=== PATIENT | female | born 1965 | race Caucasian/White ===

== ENCOUNTER 2024-08-26 07:03 | Day surgery (SDC) | payer MEDICARE, OTHER ==
[~2024-08-26 07:03] MED LIST: CELE200; DULO30; ESOM20; GLIM2; HYDACE5 PO; INSULANI; LEVSOD50; METF500; OMEGA-3; OMEP20ER; OXCA300; OXYACE5T PO; PENVK500 PO; PREG150; PROM25 PO; PSEU30 PO; SERT50; TRAZ100; ZOLP10; [UNRECOGNIZED DRUG - REMARK]; [UNRECOGNIZED DRUG - REMARK]
[2024-08-26] MEDS ORDERED: Lidocaine HCl 4% Cream 5 GM ONE (10:44)
== END 2024-08-26 23:46 | disposition home or self-care (01) ==
LOC: WOUND 07:03
DX: T81.328D Disruption or dehiscence of closure of other specified internal operation (surgical) wound, subsequent encounter (principal); E78.5 Hyperlipidemia, unspecified; K21.9 Gastro-esophageal reflux disease without esophagitis; E03.9 Hypothyroidism, unspecified; E11.40 Type 2 diabetes mellitus with diabetic neuropathy, unspecified; J44.9 Chronic obstructive pulmonary disease, unspecified; E11.622 Type 2 diabetes mellitus with other skin ulcer; S51.002D Unspecified open wound of left elbow, subsequent encounter; Z88.8 Allergy status to other drugs, medicaments and biological substances; Z88.5 Allergy status to narcotic agent; Y83.8 Other surgical procedures as the cause of abnormal reaction of the patient, or of later complication, without mention of misadventure at the time of the procedure
CPT/HCPCS: A9270; G0463

== ENCOUNTER 2024-09-09 08:32 | Day surgery (SDC) | payer MEDICARE, OTHER ==
[2024-09-09] MEDS ORDERED: Lidocaine HCl 4% Cream 5 GM ONE (14:42)
== END 2024-09-09 23:00 | disposition home or self-care (01) ==
LOC: WOUND 08:32
DX: T81.31XA Disruption of external operation (surgical) wound, not elsewhere classified, initial encounter (principal); E11.9 Type 2 diabetes mellitus without complications; I10 Essential (primary) hypertension
CPT/HCPCS: A9270

== ENCOUNTER 2024-09-16 04:42 | Day surgery (SDC) | payer MEDICARE, OTHER | END 2024-09-16 23:00 | disposition home or self-care (01) | LOC: WOUND 04:42 | DX: T81.328D Disruption or dehiscence of closure of other specified internal operation (surgical) wound, subsequent encounter (principal); I10 Essential (primary) hypertension; E11.622 Type 2 diabetes mellitus with other skin ulcer; S51.002D Unspecified open wound of left elbow, subsequent encounter; Y83.8 Other surgical procedures as the cause of abnormal reaction of the patient, or of later complication, without mention of misadventure at the time of the procedure; E11.65 Type 2 diabetes mellitus with hyperglycemia; E03.9 Hypothyroidism, unspecified | CPT/HCPCS: 36415; 80053; 80061; 83036; 84443; 85025; G0463 ==

== ENCOUNTER 2024-09-23 04:08 | Day surgery (SDC) | payer MEDICARE, OTHER ==
[2024-09-23] MEDS ORDERED: Lidocaine HCl 4% Cream 5 GM ONE (11:21)
== END 2024-09-23 23:00 | disposition home or self-care (01) ==
LOC: WOUND 04:08
DX: T81.328A Disruption or dehiscence of closure of other specified internal operation (surgical) wound, initial encounter (principal); E11.622 Type 2 diabetes mellitus with other skin ulcer; S51.002D Unspecified open wound of left elbow, subsequent encounter; X58.XXXD Exposure to other specified factors, subsequent encounter; Y83.8 Other surgical procedures as the cause of abnormal reaction of the patient, or of later complication, without mention of misadventure at the time of the procedure
CPT/HCPCS: A9270

== ENCOUNTER 2024-10-01 | Day surgery (SDC) | payer MEDICARE, OTHER ==
[~2024-10-01] MED LIST changes: +Lidocaine HCl 4% Cream 5 GM ONE
== END 2024-10-01 23:00 | disposition home or self-care (01) ==
LOC: WOUND
DX: T81.31XA Disruption of external operation (surgical) wound, not elsewhere classified, initial encounter (principal); I10 Essential (primary) hypertension; E11.622 Type 2 diabetes mellitus with other skin ulcer; S51.002D Unspecified open wound of left elbow, subsequent encounter; T81.328D Disruption or dehiscence of closure of other specified internal operation (surgical) wound, subsequent encounter; X58.XXXD Exposure to other specified factors, subsequent encounter; Y83.8 Other surgical procedures as the cause of abnormal reaction of the patient, or of later complication, without mention of misadventure at the time of the procedure
CPT/HCPCS: A9270

== ENCOUNTER 2024-10-07 06:32 | Day surgery (SDC) | payer MEDICARE, OTHER ==
[~2024-10-07 06:32] MED LIST changes: -Lidocaine HCl 4% Cream 5 GM ONE
[2024-10-07] MEDS ORDERED: Lidocaine HCl 4% Cream 5 GM ONE (13:32)
== END 2024-10-07 23:00 | disposition home or self-care (01) ==
LOC: WOUND 06:32
DX: T81.31XA Disruption of external operation (surgical) wound, not elsewhere classified, initial encounter (principal); E11.9 Type 2 diabetes mellitus without complications; I10 Essential (primary) hypertension; E11.622 Type 2 diabetes mellitus with other skin ulcer; S51.002D Unspecified open wound of left elbow, subsequent encounter; Y83.8 Other surgical procedures as the cause of abnormal reaction of the patient, or of later complication, without mention of misadventure at the time of the procedure
CPT/HCPCS: A9270

== ENCOUNTER 2024-10-14 01:23 | Day surgery (SDC) | payer MEDICARE, OTHER ==
[2024-10-14] MEDS ORDERED: Lidocaine HCl 4% Cream 5 GM ONE (12:45)
== END 2024-10-14 23:00 | disposition home or self-care (01) ==
LOC: WOUND 01:23
DX: T81.31XD Disruption of external operation (surgical) wound, not elsewhere classified, subsequent encounter (principal); I10 Essential (primary) hypertension; E11.622 Type 2 diabetes mellitus with other skin ulcer; S51.002D Unspecified open wound of left elbow, subsequent encounter; X58.XXXD Exposure to other specified factors, subsequent encounter; Y83.8 Other surgical procedures as the cause of abnormal reaction of the patient, or of later complication, without mention of misadventure at the time of the procedure
CPT/HCPCS: A9270

== ENCOUNTER 2024-10-28 01:01 | Day surgery (SDC) | payer MEDICARE, OTHER ==
[2024-10-28] MEDS ORDERED: Lidocaine HCl 4% Cream 5 GM ONE (10:04)
== END 2024-10-28 23:00 | disposition home or self-care (01) ==
LOC: WOUND 01:01
DX: T81.31XD Disruption of external operation (surgical) wound, not elsewhere classified, subsequent encounter (principal); E11.9 Type 2 diabetes mellitus without complications; I10 Essential (primary) hypertension; Y83.8 Other surgical procedures as the cause of abnormal reaction of the patient, or of later complication, without mention of misadventure at the time of the procedure
CPT/HCPCS: A9270; G0463